=== PATIENT | male | born 1950 | race Caucasian/White ===

== ENCOUNTER 2019-06-07 20:48 | Emergency (ER) | payer MEDICARE, SELFPAY ==
[2019-06-07] VITALS (13 sets, daily range): BP systolic 138–167; BP diastolic 76–96; PULSE 78–88; RESP 17–18; TEMP 36.7; O2SAT 95–97; BMI 31.0
--- NOTE | 2019-06-07 21:15 | XRR_ITS ---
PROCEDURE INFORMATION: Exam: XR Chest, 1 View Exam date and time: 06/07/2019 9:16 PM Age: 69 years old Clinical indication: Fever; Prior surgery; Surgery type: Stent TECHNIQUE: Imaging protocol: XR of the chest Views: 1 view. COMPARISON: CR Chest 1 [place] [id number] 05/30/2018 4:30 PM FINDINGS: Lungs: Unremarkable. No consolidation. Unchanged calcified granulomata. Unchanged scarring right lung base. Pleural space: Unremarkable. No pleural effusion. No pneumothorax. Heart/Mediastinum: Unchanged cardiomegaly. Bones/joints: No acute abnormality. XR/XR chest 1V portable [id number] IMPRESSION: No acute findings.
--- NOTE | 2019-06-07 22:57 | ED_ITS ---
HPI - Fever General: Chief Complaint: Fever Stated Complaint: fever Time Seen by Provider: 06/07/19 22:49 Source: patient Mode of arrival: ambulatory Limitations: no limitations History of Present Illness: HPI Narrative: Patient comes in today with a one- week history of fever. Patient was seen by urgent care on Monday and diagnosed with a viral syndrome. Patient was seen then again on Monday and started on some Augmentin for his fever that was persisting. Patient comes in today for continued fever and cough. Patient appears mildly unwell. Patient appears in no pain. Review of Systems General: Reports: 10 or more systems reviewed and unremarkable except in HPI and below Const: Reports: fever Resp: Reports: non-productive cough PFSH ED PFSH: Statuses (acute, chronic, etc) shown below reflect problem list status as previously entered and may not be historically accurate Social History (Updated 06/03/19 @ 18:32 by Jess Gutierrez LPN) Smoking and tobacco status: former smoker Physical Exam Const: COMMON NORMALS: no apparent distress and oriented x3 GENERAL A PPEARANCE: cooperative HENMT: COMMON NORMALS: normocephalic, external ears normal, EAC's normal, TM's normal bilaterally and external nose normal HEAD & SCALP: normal to inspection and normocephalic FACE & SINUS: normal facial exam NOSE: external nose normal GENERAL EAR: hearing not grossly impaired EXTERNAL EAR: Yes external ears normal EXTERNAL AUDITORY CANAL: EAC's normal TYMPANIC MEMBRANE: TM's normal bilaterally MOUTH: oral and palatal mucosa normal THROAT: posterior oropharynx normal Eye: COMMON NORMALS: PERRL and EOMs intact bilaterally PUPIL: Yes PERRL Neck/C-Spine: COMMON NORMALS: full ROM and no lymphadenopathy Lymph: LYMPHATIC: no lymphedema noted Chest: COMMONS NORMALS: inspection of chest normal and palpation of chest normal Resp: COMMON NORMALS: normal respiratory effort AUSCULTATION: wheezes (mild) expiratory wheezes Cardio: COMMON NORMALS: regular rate and regular rhythm RATE: regular rate RHYTHM: regular rhythm GI: COMMON NORMALS: normal to inspection, nondistended, normoactive bowel sounds and non-tender : COMMON NORMALS: Yes no CVA tenderness BLADDER/KIDNEY EXAM: Yes no CVA tenderness Back/Pelvis: COMMON NORMALS: no CVA tenderness and thoracic and lumbar spine normal to inspection Extremity: COMMON NORMALS: normal to inspection GENERAL: No edema Neuro: COMMON NORMALS: oriented x3, moves all extremities and no focal motor deficits Psych: COMMON NORMALS: mental status grossly normal and cooperative Skin: COMMON NORMALS: no rashes or lesions noted GENERAL SKIN EXAM: no rashes or lesions noted Course Vital Signs: Vital signs: Vital Signs Temperature 98.0 F 06/07/19 23:30 Pulse Rate 78 06/07/19 23:30 Respiratory Rate 18 06/07/19 23:30 Blood Pressure 166/96 06/07/19 23:50 Pulse Oximetry 96 06/07/19 23:30 MDM - Fever MDM Narrative: Medical decision making narrative: Patient comes in today for complaints of persisting fever and cough for 1 week. Exam notes some mild expiratory wheeze. Skin is warm and dry color is pink. Patient has a no fever at this time. Differential diagnosis includes pneumonia, influenza, upper respiratory infection. Chest x-ray noted no pneumonia. Reviewed exam with patient recommended continued treatment with Augmentin and a dose of d examethasone to help with wheezing. Discussed the use of switching the antibiotic to doxycycline may be necessary to cover some of the pathogens that would cause bronchitis. We went ahead and wrote for doxycycline and discussed with patient that if he had worsening symptoms or no improvement in 2 days he was going to switch the antibiotic. Patient was very agreeable to this plan and looked well so he was released to home with instructions. Discharge Plan Discharge Patient Disposition: Home, Self-Care Clinical Impression: Acute bronchitis Qualifiers: Bronchitis organism: unspecified organism Qualified Code(s): J20.9 - Acute bro nchitis, unspecified Condition: Stable Prescriptions: New doxycycline hyclate 100 mg tablet 100 mg PO BID 10 Days Qty: 20 RF: 0 No Action clopidogrel [Plavix] 75 mg tablet 75 mg PO QDAY RF: 0 pravastatin [Pravachol] 40 mg tablet 40 mg PO QDAY RF: 0 montelukast [Singulair] 10 mg tablet 10 mg PO QDAY RF: 0 pantoprazole [Protonix] 20 mg tablet,delayed release (DR/EC) 20 mg PO QDAY RF: 0 tamsulosin [Flomax] 0.4 mg capsule 0.4 mg PO QDAY RF: 0 alprazolam [Xanax] 0.5 mg tablet 0.5 mg PO TID RF: 0 Januvia 25 mg tablet 25 mg PO QDAY RF: 0 amoxicillin-pot clavulanate [Augmentin] 875-125 mg tablet 1 tab PO BID 10 Days Qty: 20 RF: 0 Discharge Orders: Discharge Order (Routine); Ordered 06/07/19 Ordered By: Rakesh Bosch Referrals: Ally Morales ARNP [Primary Care Provider] - Discharge Diet: Usual diet Discharge Activity: Resume usual activity Patient Instructions: Acute Bronchitis (ED) Activity Restrictions/Additional Instructions: Fluids and rest Medications as directed Healthy diet Follow-up with primary care in one week Discharge Date/Time: 06/07/19 23:35 Coding Level of Care Code 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
[2019-06-07] MEDS: dexamethasone 10 mg/mL INJ IM (23:19)
== END 2019-06-07 23:35 | disposition home or self-care (01) ==
PROVIDERS: Emergency Provider Nurse Practitioner Family; Family Provider Nurse Practitioner Family; PCP Nurse Practitioner Family
DX: J20.9 Acute bronchitis, unspecified (principal); Z79.02 Long term (current) use of antithrombotics/antiplatelets; Z87.891 Personal history of nicotine dependence
CPT/HCPCS: 71045; 96372; 99281; 99284; A9270; J1100

== ENCOUNTER 2019-06-14 13:49 | Emergency (ER) | payer MEDICARE, SELFPAY ==
[2019-06-14 14:00] VITALS: BP 165/91; PULSE 98; RESP 18; TEMP 36.5; O2SAT 97; BMI 30.9
--- NOTE | 2019-06-14 14:21 | ED_ITS ---
HPI - Fever General: Chief Complaint: Fever Stated Complaint: fever Time Seen by Provider: 06/14/19 14:21 Source: patient Mode of arrival: ambulatory Limitations: no limitations History of Present Illness: HPI Narrative: Patient has had a cough or congestion for the last 2 weeks. Patient was first seen on 03 June and started on Augmentin. After 3 to 4 days patient was seen then in the ER and diagnosed with acute bronchitis and antibiotic was changed from Augmentin to doxycycline. Patient reports he not gotten worse but just do not quite feel right in his chest still and is concerned something else may be going on. Patient appears well. Patient appears in no pain. Review of Systems General: Reports: 10 or more systems reviewed and unremarkable except in HPI and below Resp: Reports: productive cough PFSH ED PFSH: Statuses (acute, chronic, etc) shown below reflect problem list status as previously entered and may not be historically accurate Social History (Updated 06/03/19 @ 18:32 by Jess Gutierrez LPN) Smoking and tobacco status: former smoker Physical Exam Const: COMMON NORMALS: no apparent distress and oriented x3 GENERAL APPEARANCE: cooperative HENMT: COMMON NORMALS: normocephalic, external ears normal, EAC's normal, TM's normal bilaterally and external nose normal HEAD & SCALP: normal to inspection and normocephalic FACE & SINUS: normal facial exam NOSE: external nose normal GENERAL EAR: hearing not grossly impaired EXTERNAL EAR: Yes external ears normal EXTERNAL AUDITORY CANAL: EAC's normal TYMPANIC MEMBRANE: TM's normal bilaterally MOUTH: oral and palatal mucosa normal THROAT: posterior oropharynx normal Eye: COMMON NORMALS: PERRL and EOMs intact bilaterally PUPIL: Yes PERRL Neck/C-Spine: COMMON NORMALS: full ROM and no lymphadenopathy Lymph: LYMPHATIC: no lymphedema noted Chest: COMMONS NORMALS: inspection of chest normal and palpation of chest normal Resp: COMMON NORMALS: normal respiratory effort AUSCULTATION: rhonchi Cardio: COMMON NORMALS: regular rate and regular rhythm RATE: regular rate RHYTHM: regular rhythm GI: COMMON NORMALS: normal to inspection, nondistended, normoactive bowel sounds and non-tender : COMMON NORMALS: Yes no CVA tenderness BLADDER/KIDNEY EXAM: Yes no CVA tenderness Back/Pelvis: COMMON NORMALS: no CVA tenderness and thoracic and lumbar spine normal to inspection Extremity: COMMON NORMALS: normal to inspection GENERAL: No edema Neuro: COMMON NORMALS: oriented x3, moves all extremities and no focal motor deficits Psych: COMMON NORMALS: mental status grossly normal and cooperative Skin: COMMON NORMALS: no rashes or lesions noted GENERAL SKIN EXAM: no rashes or lesions noted Course Vital Signs: Vital signs: Vital Signs Temperature 97.7 F 06/14/19 14:00 Pulse Rate 68 06/14/19 15:50 Respiratory Rate 18 06/14/19 15:50 Blood Pressure 137/84 06/14/19 15:50 Pulse Oximetry 97 06/14/19 15:50 MDM - Fever MDM Narrative: Medical decision making narrative: Patient comes in for persistent cough with congestion. Exam notes some mild rhonchi in the lung fitch. Vital signs were stable. Patient was afebrile. Differential diagnosis includes pneumonia, bronchitis, viral syndrome. Chest x-ray noted a patchy infiltrate developing in the right lung. Patient has been treated with Augmentin and doxycycline we will then proceed to go with Levaquin for a more oral treatment of the infection. Patient was dosed with 10 mg of dexamethasone and 750 mg of levofloxacin. Patient tolerated medication well and reported understanding of care plan with need for follow-up and return for worsening signs and symptoms. Lab Data: Labs: Lab Results 06/14/19 Range/Units 14:14 Influenza Type A A g Negative (Negative) POC Influenza B Ag Negative (Negative) Discharge Plan Discharge Patient Disposition: Home, Self-Care Clinical Impression: Community acquired pneumonia Qualifiers: Laterality: right Lung location: middle lobe of lung Qualified Code(s): J18.9 - Pneumonia, unspecified organism Condition: Stable Prescriptions: New levofloxacin 750 mg tablet 750 mg PO DAILY 6 Days Qty: 6 RF: 0 Discontinued amoxicillin-pot clavulanate [Augmentin] 875-125 mg tablet 1 tab PO BID 10 Days Qty: 20 RF: 0 doxycycline hyclate 100 mg tablet 100 mg PO BID 10 Days Qty: 20 RF: 0 No Action clopidogrel [Plavix] 75 mg tablet 75 mg PO QDAY RF: 0 pravastatin [Pravachol] 40 mg tablet 40 mg PO QDAY RF: 0 montelukast [Singulair] 10 mg tablet 10 mg PO QDAY RF: 0 pantoprazole [Protonix] 20 mg tablet,delayed release (DR/EC) 20 mg PO QDAY RF: 0 tamsulosin [Flomax] 0.4 mg capsule 0.4 mg PO QDAY RF: 0 alprazolam [Xanax] 0.5 mg tablet 0.5 mg PO TID RF: 0 Januvia 25 mg tablet 25 mg PO QDAY RF: 0 Discharge Orders: Discharge Order (Routine); Ordered 06/14/19 Ordered By: Rakesh Bosch Referrals: Ally Morales ARNP [Primary Care Provider] - Discharge Diet: Usual diet Discharge Activity: Increase activity as tolerated Patient Instructions: Community-acquired Pneumonia (ED) Activity Restrictions/Additional Instructions: Drink plenty of water Antibiotics as directed Stop doxycycline and Augmentin Take levofloxacin daily as directed Avoid heavy lifting or straining with while taking antibiotic and two weeks after Follow-up with primary care in one week for recheck Discharge Date/Time: 06/14/19 15:51 Coding Level of Care Code ED Commissions Specialist for Dori Rascon Exam Problem Focused
--- NOTE | 2019-06-14 14:24 | XR_ITS ---
WS: [id number] Portable AP upright chest, 06/14/2019 Clinical Data: cough fever Comparison: Portable chest, 06/07/2019 Findings: No nodules, masses or effusions are seen. The heart is normal. The pulmonary vascularity is not increased. There is increase in a patchy opacity at the right lung base and this could represent atelectasis or early pneumonia. Recommend repeat PA and lateral chest x-ray in one to 2 days. No pne umothorax is seen. XR/XR chest 1V portable [id number] Impression: 1. Increase in patchy opacity over right diaphragm and recommend repeat chest x-ray in one to 2 days to evaluate for possible pneumonia. 2. Left lung is normal.
[2019-06-14] MEDS: levoFLOXacin 750 mg Tablet PO (15:08)
[2019-06-14] MEDS: dexamethasone 4 mg Tablet 10 MG PO (15:08)
[2019-06-14 15:37] LABS: Influenza A by IFA Negative (Negative); Influenza B by IFA Negative (Negative)
[2019-06-14 15:50] VITALS: BP 137/84; PULSE 68; RESP 18; O2SAT 97
== END 2019-06-14 15:51 | disposition home or self-care (01) ==
PROVIDERS: Emergency Provider Nurse Practitioner Family; Family Provider Nurse Practitioner Family; PCP Nurse Practitioner Family
DX: J18.8 Other pneumonia, unspecified organism (principal); Z79.02 Long term (current) use of antithrombotics/antiplatelets; Z87.891 Personal history of nicotine dependence
CPT/HCPCS: 71045; 87804; 99281; 99283; J8540

== ENCOUNTER 2020-11-05 09:21 | Outpatient (CLI) | payer MEDICARE, SELFPAY ==
[2020-11-05 09:54] VITALS: BMI 33.0
--- NOTE | 2020-11-05 09:55 | NMCV_ITS ---
NM armin perf SPECT r/s* [id number] Aramis ca Age: 70 Gender: M : 1950 Exam Date: 11/05/2020 10:32 Ordering Phys: Josh Gottlieb M.D ([email or web address]) Technologist: RAVEN Grossman Exam Location: [facility] Indications: ESSENTIAL PRIMARY HYPERTENSION STRESS TEST Please see separate stress test report in [facility] for full findings IMAGE PROTOCOL Rest/Stress 1 Exercise Day Radiopharmaceutical Dose (mCi) Administration Site Administered by Rest: Tc-99m 10.4 IV RAVEN Grossman Sestamibi Stress:Tc-99m 32.1 IV RAVEN Grossman Sestamibi Rest: 05-Nov-2020 60 Discovery 630 Stress: 05-Nov-2020 30 Discovery 630 Radiopharmaceutical was injected at 88 % maximum heart rate. Images obtained in supine and prone position. SPECT RESULTS Technical Quality: Excellent Raw Data Analysis: Normal Image Corrections: No attenuation or motion correction applied Summed Stress Score: 6 Summed Rest Score: 0 Summed Difference Score: 6 PERFUSION FINDINGS There is a moderate area of reversible perfusion defect noted in the anterolateral, mid lateral and lateral ng. This is consistent with ischemia in these territories FUNCTIONAL RESULTS (calculated via Gated SPECT) Stress Image LV EF (%): 60 Stress EDV (mL):98 TID: 1.11 Stress ESV (mL):39 FUNCTIONAL FINDINGS: There is normal left ventricular systolic function. IMPRESSIONS 1. Abnormal myocardial perfusion imaging with ischemia noted in the anterolateral, mid lateral and lateral ng. 2. LV systolic function is normal Josh Gottlieb MD (Electronically Signed) Final Date: 07 November 2020 19:57 S
--- NOTE | 2020-11-05 09:55 | ECG_ITS ---
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 Interpretive Statements NAME OF STUDY: EXERCISE SESTAMIBI STRESS TEST INDICATION: [HTN; ASHD; BILATERAL CAROTID STENOSIS] DOT PHYSICAL CLEARANCE PROCEDURE DETAIL: The patient was exercised by Garcia protocol. Baseline heart rate was 68 beats per minute. Baseline blood pressure was 152/83 millimeters of mercury. Target heart rate was 128 beats per minute. Maximum heart rate achieved was 141, which was 110% of the target heart rate. Maximum blood pressure was 194/140 millimeters of mercury. Total exercise time was 4 minutes and 14 seconds. Maximum METs achieved was 7, maximum VO2 was 24.5. The reason for ending the test was achieving target heart rates. The patient complained of shortness of breath during the stress test, which then resolved at the end of the test. ELECTROCARDIOGRAM: BASELINE: Showed sinus rhythm, normal axis, no significant ST-T changes at the baseline noted, frequent PVCs. [] EXERCISE: At the peak exercise level, significant artifact noted. Ischemic changes can not be accurately assessed. RECOVERY: During the recovery period, heart rate dropped appropriately. PVCs were noted CONCLUSION: 1. Exercise capacity fair. 2. Heart rate response was appropriate. 3. Blood pressure response was hypertensive 4. Symptoms not suggestive of ischemia. 5. Electrocardiogram portion of the stress test was inconclusive for ischemia because of EKG artifact Electronically Signed On 11-13-2020 14:09:22 CDT by Josh Gottlieb M.D. [id number]
[2020-11-05 13:51] VITALS: BP 165/94; PULSE 93
== END 2020-11-05 09:22 | disposition home or self-care (01) ==
LOC: CDL 09:22
PROVIDERS: PCP Nurse Practitioner Family; Visit Provider Internal Medicine
DX: I10 Essential (primary) hypertension (principal); I25.10 Atherosclerotic heart disease of native coronary artery without angina pectoris; I65.23 Occlusion and stenosis of bilateral carotid arteries
CPT/HCPCS: 78452; 93017; A9500

== ENCOUNTER 2021-04-27 20:26 | Emergency (ER) | payer MEDICARE, OTHER, SELFPAY ==
[2021-04-27 20:32] VITALS: BP 171/71; PULSE 64; RESP 18; TEMP 36.8; BMI 31.1
--- NOTE | 2021-04-27 20:32 | ECG_ITS ---
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 Measurements Intervals [place] Rate: 64 P: 65 ID: 160 QRS: 14 QRSD: 110 T: 66 QT: 373 QTc: 387 Interpretive Statements SINUS RHYTHM Compared to ECG 05/30/2018 19:21:55 Sinus bradycardia no longer present Electronically Signed On 04-27-2021 21:58:26 COMPLIANCE MGR by Beth Martinez M.D. [id number] f
--- NOTE | 2021-04-27 20:32 | XRR_ITS ---
PROCEDURE INFORMATION: Exam: XR Chest Exam date and time: 04/27/2021 8:32 PM Age: 71 years old Clinical indication: Chest wall pain; Additional info: Cp TECHNIQUE: Imaging protocol: XR of the chest. Views: 1 view. COMPARISON: CR XR chest 1V portable [id number] 06/14/2019 2:32 PM FINDINGS: Lungs: No consolidation. Pleural spaces: No pleural effusion. No pneumothorax. Heart/Mediastinum: Top-normal heart size accentuated by AP technique. Bones/joints: Visualized osseous structures are intact. XR/XR chest 1V portable [id number] IMPRESSION: No acute findings.
--- NOTE | 2021-04-27 20:48 | W.ED.WEAKNES ---
HPI - Weakness General: Chief complaint: Weakness Stated complaint: weakness Time Seen by Provider: 04/27/21 20:29 Source: patient and EMS Mode of arrival: EMS Limitations: no limitations History of Present Illness: HPI Narrative: 8-year-old male that states that roughly an hour ago he started having some tingling in his bilateral upper extremities states that it concerned him as he has a history of a heart attack in the past states it lasted roughly 10 to 15 minutes since completely resolved states he had some slight fluctuation in his blood pressures but is unsure exactly what it was. Denies any stroke symptoms no slurred speech no headache no chest pain no vomiting diarrhea patient's symptoms of completely resolved this time. He states she is has been under some stress lately his recently passed that he has been to for 53 years. Associated symptoms: Denies chest pain, chills, dysuria, easy bruising, fever(s), nausea or vomiting Review of Systems Const: Denies: fever(s), chills, body aches or change in appetite Eyes: Denies: blurry vision or eye discomfort ENMT: Denies: throat pain or dental pain Card: Denies: chest pain Resp: Denies: dyspnea GI: Denies: abdominal pain, nausea, vomiting or diarrhea : Denies: dysuria Musc: Denies: neck pain or back pain Skin/Breast: Denies: rash Neuro: Reports: numbness in extremities Psych: Denies: depression [place]/Lymph: Denies: easy bruising All/Imm: Denies: urticaria PFSH ED PFSH: Medical History ASHD (arteriosclerotic heart disease) Carotid stenosis, bilateral Dyslipidemia GERD (gastroesophageal reflux disease) HTN (hypertension) Myocardial infarction Surgical History S/P cataract extraction S/P PTCA (percutaneous transluminal coronary angioplasty) S/P sinus surgery Social History Smoking and tobacco status: current every day smoker (chew) smokeless tobacco Alcohol intake: never History of recent travel: No Physical Exam Const: COMMON NORMALS: no acute distress, patient oriented x3 and healthy appearing HENMT: COMMON NORMALS: normocephalic and atraumatic HEAD & SCALP: normocephalic and atraumatic Eye: COMMON NORMALS: Equal, round and reactive pupils present and EOMs intact bilaterally PUPIL: Yes Equal, round and reactive pupils present Neck/C-Spine: COMMON NORMALS: full ROM and supple Chest: COMMONS NORMALS: normal inspection of the chest and normal palpation of entire chest wall Resp: COMMON NORMALS: normal respiratory effort, No retractions, No use of accessory muscles and clear to auscultation bilaterally AUSCULTATION: clear to auscultation bilaterally Cardio: COMMON NORMALS: regular rate, regular rhythm and No murmurs present (Cardio) RATE: regular rate RHYTHM: regular rhythm GI: COMMON NORMALS: Normal to inspection, nondistended, normoactive bowel sounds present, Soft to palpation, non-tender and no masses PALPATION: Yes Soft to palpation Extremity: COMMON NORMALS: normal to inspection and full ROM Neuro: COMMON NORMALS: patient oriented x3, moves all extremities and no focal motor deficits CRANIAL NERVES: Yes CN normal except as noted SPEECH: speech normal GAIT: Yes Normal gait present SENSORY EXAM: Yes extremities MOTOR EXAM: 5/5 motor strength present throughout Psych: COMMON NORMALS: mental status grossly normal, Normal thought process present and cooperative THOUGHT PROCESS: Normal thought process present Skin: COMMON NORMALS: no rashes or lesions noted and no wounds GENERAL SKIN EXAM: no rashes or lesions noted Course Vital Signs: Vital signs: Vital Signs Temperature 98.3 F 04/27/21 20:32 Pulse Rate 61 04/27/21 22:02 Respiratory Rate 18 04/27/21 22:02 Blood Pressure 150/77 04/27/21 22:02 Pulse Oximetry 98 04/27/21 22:02 MDM - Weakness MDM Narrative: Medical decision making narrative: Patient presents here with episode of paresthesias since resolved he has been under a lot of stress lately his cardiac enzymes CT head were normal no signs of cardiac cause no signs of acute stroke patient is stable for discharge and is to follow-up with PCP and return if worsening he understands agrees to plan. Lab Data: Labs: Lab Results 04/27/21 04/27/21 04/27/21 20:45 20:45 20:45 WBC 6.2 10^3/uL 10^3/ uL (4.0-10.0) RBC 4.99 10^6/uL 10^6 /uL (4.1-5.3) Hgb 14.4 g/dL g/dL (11.7-16.6) Hct 44.1 % % (42.0-52.0) MCV 88.4 fl fl (80-94) MCH 28.9 pg pg (28.0-34.0) MCHC 32.7 g/dL g/dL (30.0-36.0) RDW 14.4 % % (12.1-15.1) Plt Count 210 10^3/cmm 10^3 /cmm (130-400) MPV 9.4 fL fL (7.4-10.4) Neut % (Auto) 50.8 % % Lymph % (Auto) 38.6 % % [place] % (Auto) 8.9 % % Eos % (Auto) 1.0 % % Baso % (Auto) 0.5 % % Neut # (Auto) 3.13 10^3/uL 10^3 /uL (1.8-7.7) Lymph # (Auto) 2.4 10^3/uL 10^3/ uL (0.8-4.8) [place] # (Auto) 0.6 10^3/uL 10^3/ uL (0.2-0.9) Eos # (Auto) 0.1 10^3/uL 10^3/ uL (0.0-0.8) Baso # (Auto) 0.0 10^3/uL 10^3/ uL (0.0-0.1) Nucleated RBC % (a uto) 0 % % Nucleated RBCs # 0.0 /100WBC /100W BC Sodium 142 mmol/L mmol/L (136-145) Potassium 3.6 mmol/L mmol/L (3.5-5.1) Chloride 105 mmol/L mmol/L (98-107) Carbon Dioxide 24 mmol/L mmol/L (22-29) Anion Gap 16.6 (5-19) BUN 10 mg/dL mg/dL (8-23) Creatinine 0.8 mg/dL mg/dL (0.7-1.2) GFR Calculation 95.6 mL/min mL/mi n (90-130) Glucose 100 mg/dL mg/dL (65-115) Calculated Osmolal ity 293 mOsm/kg mOsm/ kg (285-295) Calcium 8.6 mg/dL mg/dL (8.5-10.5) Total Bilirubin 0.4 mg/dL mg/dL (0.15-1.2) AST 15 U/L U/L (0-40) ALT 16 U/L U/L (0-41) Alkaline Phosphata se 73 IU/L IU/L (40-130) Troponin T Baselin e 6 ng/L ng/L (0-15) Total Protein 6.6 g/dL g/dL (6.6-8.7) Albumin 4.1 g/dL g/dL (3.5-5.2) Globulin 2.5 g/dL g/dL (1.3-4.6) Imaging Data^: CXR: Attestation: I personally reviewed and interpreted this imaging study as follows: My impression: no acute abnormality CT Head: Attestation: I personally reviewed and interpreted this imaging study as follows: Radiologist's impression: [address] [address] [address] Scan Report Signed Patient: Aramis Willams Unit #: [id number] : 1950 Age/Sex: 71 / M ADM Date: 04/27/21 Loc: ER Room/Bed: Attending Dr: Ordering Provider/Ordering MD: Vickey Rossi MD Date of Service: 04/27/21 Procedure(s): CT head wo con* [id number] Accession Number(s): [id number] Report Number: [id number] PROCEDURE INFORMATION: Exam: CT Head Without Contrast Exam date and time: 04/27/2021 9:31 PM Age: 71 years old Clinical indication: Other: Generalized weakness; Prior surgery; Surgery type: Carotid TECHNIQUE: Imaging protocol: Computed tomography of the head without contrast. Radiation optimization: All CT scans at this facility use at least one of these dose optimization techniques: automated exposure control; mA and/or kV adjustment per patient size (includes targeted exams where dose is matched to clinical indication); or iterative reconstruction. COMPARISON: CR Orbits Complete [id number] 03/23/2016 9:36 AM RADIATION DOSE METRICS: Total DLP (mGy-cm): 824.8 FINDINGS: Brain: No hemorrhage. Unremarkable white matter. No mass effect. The pituitary gland appears prominent for patient's stated age measuring up to 8 mm in height. Cerebral ventricles: No ventriculomegaly. Paranasal sinuses: Visualized sinuses are unremarkable. No fluid levels. Mastoid air cells: Visualized mastoid air cells are well aerated. Bones/joints: Unremarkable. No acute fracture. Soft tissues: Unremarkable. CT/CT head wo con* [id number] IMPRESSION: 1. No acute intracranial abnormality. 2. Prominent appearance of the pituitary gland for patient's stated age. This could be further evaluated with pituitary protocol MRI. Dictated By: Damion Hall DO Signed By: Damion Hall DO Signed Date/Time: 04/27/212200 DD/ 30 EKG Data^: EKG 1: Attestation: I personally reviewed and interpreted this EKG as follows: EKG interpretation date: 04/27/21 EKG interpretation time: 20:32 Interpretation: nsr hr [address] or t wave abnormalitities qrs 110 qtc 383 Discharge Plan Discharge Patient Disposition: Home Clinical Impression: Paresthesia Condition: Stable Prescriptions: No Action montelukast [Singulair] 10 mg tablet 10 mg PO DAILY RF: 0 pantoprazole [Protonix] 20 mg tablet,delayed release (DR/EC) 20 mg PO DAILY RF: 0 tamsulosin [Flomax] 0.4 mg capsule 0.4 mg PO BID RF: 0 alprazolam [Xanax] 0.5 mg tablet 0.5 mg PO TID RF: 0 atorvastatin 40 mg tablet 40 mg PO DAILY RF: 0 sertraline 25 mg tablet 25 mg PO DAILY RF: 0 Plavix 75 mg tablet 75 mg PO DAILY RF: 0 Discharge Orders: Discharge ED (Routine); Ordered 04/27/21 Ordered By: Vickey Rossi Discharge Diet: Advance as tolerated Discharge Activity: Resume usual activity Patient Instructions: Paresthesia (ED) Coding Level of Care Code 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
[2021-04-27 21:10] LABS: Troponin(5th) Baseline 6 ng/L (0-15)
[2021-04-27 21:16] LABS: Basophils % 0.5 %; Eosinophils # 0.1 10^3/uL (0.0-0.8); Hematocrit 44.1 % (42.0-52.0); Hemoglobin 14.4 g/dL (11.7-16.6); Lymphocytes # 2.4 10^3/uL (0.8-4.8); Lymphocytes % 38.6 %; Mean Corpuscular HGB Conc 32.7 g/dL (30.0-36.0); Mean Corpuscular Hemoglobin 28.9 pg (28.0-34.0); Mean Corpuscular Volume 88.4 fl (80-94); Mean Platelet Volume 9.4 fL (7.4-10.4); Monocytes # 0.6 10^3/uL (0.2-0.9); Monocytes % 8.9 %; Neutrophils # 3.13 10^3/uL (1.8-7.7); Neutrophils % 50.8 %; Nucleated Red Blood Cells % 0 %; Platelet Count 210 10^3/cmm (130-400); Red Blood Count 4.99 10^6/uL (4.1-5.3); Red Cell Distribution Width 14.4 % (12.1-15.1); White Blood Count 6.2 10^3/uL (4.0-10.0)
[2021-04-27 21:30] LABS: Alanine Aminotransferase 16 U/L (0-41); Albumin Level 4.1 g/dL (3.5-5.2); Alkaline Phosphatase 73 IU/L (40-130); Anion Gap 16.6 (5-19); Aspartate Amino Transferase 15 U/L (0-40); Blood Urea Nitrogen 10 mg/dL (8-23); Calcium 8.6 mg/dL (8.5-10.5); Carbon Dioxide 24 mmol/L (22-29); Chloride 105 mmol/L (98-107); Globulin 2.5 g/dL (1.3-4.6); Glomerular Filtration Rate 95.6 mL/min (90-130); Glucose 100 mg/dL (65-115); Osmolality Calculated 293 mOsm/kg (285-295); Potassium 3.6 mmol/L (3.5-5.1); Sodium 142 mmol/L (136-145); Total Bilirubin 0.4 mg/dL (0.15-1.2); Total Protein 6.6 g/dL (6.6-8.7)
--- NOTE | 2021-04-27 21:31 | CTR_ITS ---
PROCEDURE INFORMATION: Exam: CT Head Without Contrast Exam date and time: 04/27/2021 9:31 PM Age: 71 years old Clinical indication: Other: Generalized weakness; Prior surgery; Surgery type: Carotid TECHNIQUE: Imaging protocol: Computed tomography of the head without contrast. Radiation optimization: All CT scans at this facility use at least one of these dose optimization techniques: automated exposure control; mA and/or kV adjustment per patient size (includes targeted exams where dose is matched to clinical indication); or iterative reconstruction. COMPARISON: CR Orbits Complete [id number] 03/23/2016 9:36 AM RADIATION DOSE METRICS: Total DLP (mGy-cm): 824.8 FINDINGS: Brain: No hemorrhage. Unremarkable white matter. No mass effect. The pituitary gland appears prominent for patient's stated age measuring up to 8 mm in height. Cerebral ventricles: No ventriculomegaly. Paranasal sinuses: Visualized sinuses are unremarkable. No fluid levels. Mastoid air cells: Visualized mastoid air cells are well aerated. Bones/joints: Unremarkable. No acute fracture. Soft tissues: Unremarkable. CT/CT head wo con* [id number] IMPRESSION: 1. No acute intracranial abnormality. 2. Prominent appearance of the pituitary gland for patient's stated age. This could be further evaluated with pituitary protocol MRI.
[2021-04-27 22:02] VITALS: BP 150/77; PULSE 61; RESP 18; O2SAT 98
[2021-04-27 23:05] VITALS: BP 139/83; PULSE 61; RESP 18; TEMP 36.7; O2SAT 98
== END 2021-04-27 23:07 | disposition home or self-care (01) ==
PROVIDERS: Emergency Provider Emergency Medicine
DX: R20.2 Paresthesia of skin (principal); I10 Essential (primary) hypertension; K21.9 Gastro-esophageal reflux disease without esophagitis; I25.10 Atherosclerotic heart disease of native coronary artery without angina pectoris; I65.23 Occlusion and stenosis of bilateral carotid arteries; I25.2 Old myocardial infarction; F17.220 Nicotine dependence, chewing tobacco, uncomplicated
CPT/HCPCS: 70450; 71045; 80053; 84484; 85025; 93005; 99283

== ENCOUNTER 2021-11-20 21:09 | Emergency (ER) | payer MEDICARE, MEDICAID, SELFPAY ==
[2021-11-20 21:51] VITALS: BP 164/64; PULSE 93; RESP 18; TEMP 38.1; O2SAT 97; BMI 31.9
--- NOTE | 2021-11-21 00:59 | XRR_ITS ---
PROCEDURE INFORMATION: Exam: XR Chest Exam date and time: 11/21/2021 1:09 AM Age: 71 years old Clinical indication: Cough and fever; Additional info: Cough, fever TECHNIQUE: Imaging protocol: Radiologic exam of the chest. Views: 1 view. COMPARISON: CR XR chest 1V portable [id number] 04/27/2021 8:45 PM FINDINGS: Lungs: There are normal lung volumes without confluent interstitial or airspace opacities. Age-related interstitial prominence is seen in the lungs. Pleural spaces: There are no pleural effusions or pneumothorax. Heart/Mediastinum: The heart size is unchanged - at the upper limit of normal. There is a mildly tortuous thoracic aorta. The trachea is in the midline. Bones/joints: No acute abnormalities. Mild shoulder degenerative changes are seen. Small degenerative osteophytes are seen throughout the thoracic spine. XR/XR chest 1V portable [id number] IMPRESSION: No confluent infiltrates in the lungs.
--- NOTE | 2021-11-21 01:21 | W.ED.GENADLT ---
HPI - General Adult General: Chief complaint: General Medical Stated complaint: weakness; throat discomfort; fever Time Seen by Provider: 11/21/21 00:59 History of Present Illness: Patient is a 71-year-old male comes to the ED with fever and cough. Symptoms started approximately 2 days ago. Patient says he went up to his girlfriend's house to help her move out. He was moving stuff in and out of a trailer that was very gust[place] and dirty and he says he was breathing that in and that is when his cough and nasal congestion and drainage started. His girlfriend had same symptoms and she did a home COVID test and it was negative. His cough is mostly dry but occasionally has some clear sputum that he coughs up. Denies any shortness of breath or chest pain. Patient says he feels a little fatigued but he just drove back in town after helping his girlfriend move for the past couple days and thinks he is just tired from the travel. Denies any nausea/vomiting, body aches, bladder or bowel symptoms. Associated symptoms: Deny chest pain, dyspnea, headache(s), nausea, rash, palpitations or vomiting Review of Systems Const: Denies: fever(s), chills or fatigue Eyes: Denies: change in vision or eye discomfort ENMT: Reports: throat pain, nasal discharge and nasal congestion; Denies: odynophagia Card: Denies: chest pain, palpitations, edema, swelling of feet/ankles, dyspnea on exertion or orthopnea Resp: Reports: non-productive cough; Denies: dyspnea or productive cough GI: Denies: abdominal pain, nausea, vomiting, diarrhea, constipation or hematochezia : Denies: flank pain, difficulty urinating, dysuria or hematuria Musc: Denies: neck pain, back pain or extremity swelling Skin/Breast: Denies: rash or new lesions Neuro: Denies: headache(s), numbness in extremities or weakness in extremities PFS ED PFSH: Medical History ASHD (arteriosclerotic heart disease) Carotid stenosis, bilateral Dyslipidemia GERD (gastroesophageal reflux disease) HTN (hypertension) Myocardial infarction Surgical History S/P cataract extraction S/P PTCA (percutaneous transluminal coronary angioplasty) S/P sinus surgery Social History Smoking and tobacco status: current every day smoker (chew) smokeless tobacco Alcohol intake: never History of recent travel: No Physical Exam Const: COMMON NORMALS: no acute distress, patient oriented x3 and alert GENERAL APPEARANCE: cooperative and comfortable HENMT: COMMON NORMALS: normocephalic HEAD & SCALP: normocephalic MOUTH: Normal oral and palatal mucosa present THROAT: posterior oropharynx normal and uvula midline Eye: COMMON NORMALS: Equal, round and reactive pupils present, EOMs intact bilaterally and conjunctivae normal CONJUNCTIVA: Yes conjunctivae normal PUPIL: Yes Equal, round and reactive pupils present Neck/C-Spine: COMMON NORMALS: supple GENERAL: Yes normal visual inspection Resp: COMMON NORMALS: normal respiratory effort, No retractions, No use of accessory muscles and clear to auscultation bilaterally EFFORT & INSPECTION: Yes Actively coughing dry AUSCULTATION: clear to auscultation bilaterally Cardio: COMMON NORMALS: regular rate, regular rhythm, S1 normal heart sound present, S2 normal heart sound present, No gallops present (Cardio), No clicks present (Cardio), No murmurs present (Cardio) and Peripheral pulses 2+ throughout RATE: regular rate RHYTHM: regular rhythm HEART SOUNDS: S1 normal heart sound present and S2 normal heart sound present PERIPHERAL PULSES: Peripheral pulses 2+ throughout GI: COMMON NORMALS: Normal to inspection, nondistended, normoactive bowel sounds present, Soft to palpation, non-tender and no masses PALPATION: Yes Soft to palpation : COMMON NORMALS: Yes no CVA tenderness BLADDER/KIDNEY EXAM: Yes no CVA tenderness Back/Pelvis: COMMON NORMALS: no CVA tenderness Extremity: COMMON NORMALS: normal to inspection Neuro: COMMON NORMALS: patient oriented x3 and moves all extremities SENSORIUM/ORIENTATION: Yes alert Skin: GENERAL SKIN EXAM: dry skin Course Vital Signs: Vital signs: Vital Signs Temperature 98.6 F 11/21/21 03:35 Pulse Rate 79 11/21/21 03:35 Respiratory Rate 20 H 11/21/21 03:35 Blood Pressure 105/61 11/21/21 03:35 Pulse Oximetry 98 11/21/21 03:35 [facility] - General Adult Medical Decision Making Patient is a 71-year-old male comes to the ED with fever and cough. Symptoms started approximately 2 days ago. Patient says he went up to his girlfriend's house to help her move out. He was moving stuff in and out of a trailer that was very gust[place] and dirty and he says he was breathing that in and that is when his cough and nasal congestion and drainage started. His girlfriend had same symptoms and she did a home COVID test and it was negative. Denies any chest pain or shortness of breath. Patient has a temp of 100.5 the rest of vitals are stable. He has active dry cough upon exam but lungs are clear to auscultation bilaterally. COVID pending, strep negative and influenza negative. Chest x-ray showed no infiltrates. Patient was given a dose of Solu-Medrol and azithromycin here in the ED. He was diagnosed with bronchitis and discharged home with a prescription for azithromycin, prednisone and albuterol inhaler to use as needed for any shortness of breath or wheezing. Follow-up with PCP in the next week for reevaluation. Return to ED precautions given. Patient understood and agreed with plan. Lab Data I reviewed the patient's lab results. Radiology Impressions Chest X-Ray 11/21/21 00:59 IMPRESSION: No confluent infiltrates in the lungs. Laboratory Results Influenza Type A Ag Negative (Negative) 11/21/21 01:34 Influenza Type B Ag Negative (Negative) 11/21/21 01:34 Group A Strep Rapid Negative (Negative) 11/21/21 01:34 Discharge Plan Discharge Patient Disposition: Home Clinical Impression: Bronchitis, Encounter for laboratory testing for COVID-19 virus Condition: Stable Prescriptions: New azithromycin 250 mg tablet 250 mg PO DAILY 4 Days Qty: 4 0RF Rx Instructions: start on day 2 of therapy prednisone 20 mg tablet 20 mg PO BID 5 Days Qty: 10 0RF albuterol sulfate 90 mcg/actuation HFA aerosol inhaler 2 inh inhalation Q6H PRN (Reason: shortness of breath or wheezing) Qty: 8.5 0RF No Action doxycycline hyclate 100 mg capsule 100 mg PO BID 7 Days Qty: 14 0RF ciprofloxacin HCl [Cipro] 250 mg tablet 250 mg PO BID 5 Days Qty: 10 0RF clotrimazole [Antifungal (clotrimazole)] 1 % cream 1 applic topical BID 10 Days Qty: 90 0RF montelukast [Singulair] 10 mg tablet 10 mg PO DAILY 0RF pantoprazole [Protonix] 20 mg tablet,delayed release (DR/EC) 20 mg PO DAILY 0RF tamsulosin [Flomax] 0.4 mg capsule 0.4 mg PO BID 0RF alprazolam [Xanax] 0.5 mg tablet 0.5 mg PO TID 0RF atorvastatin 40 mg tablet 40 mg PO DAILY 0RF sertraline 25 mg tablet 25 mg PO DAILY 0RF Plavix 75 mg tablet 75 mg PO DAILY 0RF Discharge Orders: Discharge ED (Routine); Ordered 11/21/21 Ordered By: Sheldon Johnson Discharge Diet: Regular Discharge Activity: Increase activity as tolerated Patient Instructions: Bronchitis (Acute) - Adult Activity Restrictions/Additional Instructions: Follow-up with medical provider as directed in the next 5 to 7 days for reevaluation. COVID test is pending and results will be back later tonight. [facility] positive, but I recommend calling [employer] [facility] tomorrow morning to find out COVID-19 results. Take medications as prescribed. Return to the ER or your medical provider if condition worsens. Please read and understand discharge instructions. [facility] Please realize this is an emergency room and that we are providing you with a medical screening exam and this may not be complete and all inclusive of all the testing and or work up that you may need to determine your ailment or severity of your illness. It is very important that you follow up as instructed or that you return to the Emergency Department should you have concerns or if your condition changes or worsens in any way. 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
[2021-11-21 01:38] VITALS: BP 120/61; PULSE 77; RESP 18; TEMP 37.2; O2SAT 97
[2021-11-21] MEDS: acetaminophen 500 mg Tablet 1000 MG PO (01:39)
[2021-11-21 01:53] LABS: Rapid Strep A Test Negative (Negative)
[2021-11-21 02:01] LABS: Influenza A by IFA Negative (Negative); Influenza B by IFA Negative (Negative)
[2021-11-21 03:35] VITALS: BP 105/61; PULSE 79; RESP 20; TEMP 37; O2SAT 98
[2021-11-21] MEDS: azithromycin 250 mg Tablet 500 MG PO (03:36)
[2021-11-24 11:26] LABS: Quest SARS-CoV-2 RNA DETECTED
--- NOTE | 2021-11-24 16:26 | PC.NURSE ---
pt notified of postive covid result
== END 2021-11-21 03:45 | disposition home or self-care (01) ==
PROVIDERS: Emergency Provider Physician Assistant
DX: J40 Bronchitis, not specified as acute or chronic (principal); Z20.822 Contact with and (suspected) exposure to COVID-19; Z79.02 Long term (current) use of antithrombotics/antiplatelets; E78.5 Hyperlipidemia, unspecified; I10 Essential (primary) hypertension; I25.2 Old myocardial infarction; F17.220 Nicotine dependence, chewing tobacco, uncomplicated
CPT/HCPCS: 71045; 87081; 87635; 87804; 87880; 96372; 99284; J2930; Q0144

== ENCOUNTER → 2022-11-01 08:52 | Outpatient (BNVA) | payer MEDICARE, MEDICAID, SELFPAY | PROVIDERS: Visit Provider Internal Medicine Cardiovascular Disease | DX: R00.1 Bradycardia, unspecified (principal) | CPT/HCPCS: 93225 ==

== ENCOUNTER 2023-11-12 13:30 | Emergency (ER) | payer MEDICARE, MEDICAID, SELFPAY ==
[2023-11-12 14:11] VITALS: BP 149/69; PULSE 68; RESP 16; TEMP 36.5; O2SAT 98
--- NOTE | 2023-11-12 14:36 | W.ED.SKABFB ---
HPI - Skin/Abscess/Foreign Bdy General: Chief complaint: Skin/Abscess/Foreign Body Stated complaint: rash on chest and legs/back Time Seen by Provider: 11/12/23 14:21 Source: patient Mode of arrival: ambulatory Limitations: no limitations History of Present Illness: 73-year-old male states he had a rash to his trunk for the last week. He states he been out cutting trees and he believes is poison jitendra states very pruritic in nature denies any worsening improving factors. Denies any pain or fever Associated symptoms: Deny chills, fever(s), nausea or vomiting Review of Systems Const: Denies: fever(s), chills, body aches or change in appetite ENMT: Denies: throat pain or dental pain Card: Denies: chest pain Resp: Denies: dyspnea GI: Denies: abdominal pain, nausea, vomiting or diarrhea Musc: Denies: neck pain or back pain Skin/Breast: Reports: rash Neuro: Denies: headache(s) PFSH ED PFSH: Medical History ASHD (arteriosclerotic heart disease) Myocardial infarction HTN (hypertension) GERD (gastroesophageal reflux disease) Carotid stenosis, bilateral Dyslipidemia Surgical History S/P PTCA (percutaneous transluminal coronary angioplasty) S/P sinus surgery S/P cataract extraction Social History Smoking and tobacco/nicotine status: current every day tobacco/nicotine user (chew) smokeless tobacco Alcohol intake: never Substance/Drug Use: never Physical Exam Const: COMMON NORMALS: no acute distress, patient oriented x3 and healthy appearing HENMT: COMMON NORMALS: normocephalic and atraumatic HEAD & SCALP: normocephalic and atraumatic Neck/C-Spine: COMMON NORMALS: full ROM and supple Resp: COMMON NORMALS: normal respiratory effort Cardio: COMMON NORMALS: regular rate, regular rhythm and No murmurs present (Cardio) RATE: regular rate RHYTHM: regular rhythm Extremity: COMMON NORMALS: normal to inspection and full ROM Neuro: COMMON NORMALS: patient oriented x3, moves all extremities and no focal motor deficits Psych: COMMON NORMALS: mental status grossly normal, Normal thought process present and cooperative THOUGHT PROCESS: Normal thought process present Skin: COMMON NORMALS: no wounds NARRATIVE SKIN EXAM: Rash noted to chest consistent with poison jitendra Course Vital Signs: Vital signs: Vital Signs Temperature 97.7 F 11/12/23 14:11 Pulse Rate 68 11/12/23 14:11 Respiratory Rate 16 11/12/23 14:11 Blood Pressure 149/69 11/12/23 14:11 Pulse Oximetry 98 11/12/23 14:11 MDM - Skin/Abscess/Foreign Bdy Medicial Decision Making Patient presents with a contact dermatitis likely poison jitendra did give him Kenalog and Decadron patient is stable for discharge follow-up PCP return if worsening. Medical Records I reviewed the patient's medical records. No radiology studies performed this visit Discharge Plan Discharge Patient Disposition: Home Clinical Impression: Contact dermatitis Condition: Stable Prescriptions: No Action doxycycline hyclate 100 mg capsule 100 mg PO BID 7 Days Qty: 14 0RF ciprofloxacin HCl [Cipro] 250 mg tablet 250 mg PO BID 5 Days Qty: 10 0RF clotrimazole [Antifungal (clotrimazole)] 1 % cream 1 applic topical BID 10 Days Qty: 90 0RF montelukast [Singulair] 10 mg tablet 10 mg PO DAILY pantoprazole [Protonix] 20 mg tablet,delayed release (DR/EC) 20 mg PO DAILY tamsulosin [Flomax] 0.4 mg capsule 0.4 mg PO BID alprazolam [Xanax] 0.5 mg tablet 0.5 mg PO TID atorvastatin 40 mg tablet 40 mg PO DAILY sertraline 25 mg tablet 25 mg PO DAILY Plavix 75 mg tablet 75 mg PO DAILY albuterol sulfate 90 mcg/actuation HFA aerosol inhaler 2 inh inhalation Q6H PRN (Reason: shortness of breath or wheezing) Qty: 8.5 0RF Discharge Orders: Discharge ED (Routine); Ordered 11/12/23 Ordered By: Vickey Rossi Discharge Diet: Advance as tolerated Discharge Activity: Resume usual activity Patient Instructions: Contact Dermatitis (ED) Coding Level of Care Code ED Upset 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
[2023-11-12] MEDS: triamcinolone 40 mg/mL SDV 80 MG IM (14:56)
[2023-11-12] MEDS: dexamethasone 10 mg/mL INJ IM (14:56)
[2023-11-12 15:40] VITALS: BP 128/71; PULSE 58; RESP 16; O2SAT 97
== END 2023-11-12 15:40 | disposition home or self-care (01) ==
PROVIDERS: Emergency Provider Emergency Medicine
DX: L25.9 Unspecified contact dermatitis, unspecified cause (principal); Z79.02 Long term (current) use of antithrombotics/antiplatelets; I25.2 Old myocardial infarction; I10 Essential (primary) hypertension; E78.5 Hyperlipidemia, unspecified; F17.220 Nicotine dependence, chewing tobacco, uncomplicated
CPT/HCPCS: 96372; 99284; J1100; J3301

== ENCOUNTER 2024-06-16 20:52 | Emergency (ER) | payer MEDICARE, MEDICAID, SELFPAY ==
[2024-06-16 20:59] VITALS: BP 180/86; PULSE 64; RESP 17; TEMP 36.9; O2SAT 98; BMI 30.2
--- NOTE | 2024-06-16 22:06 | XRR_ITS ---
PROCEDURE INFORMATION: Exam: XR Left Hip Exam date and time: 06/16/2024 10:24 PM Age: 74 years old Clinical indication: C/O left hip pain. No injury. TECHNIQUE: Imaging protocol: Radiologic exam of the left hip. Views: 2 or 3 views hip with pelvis when performed. COMPARISON: CT abdomen pelvis wo con [id number] 05/09/2018 7:14 PM FINDINGS: Bones/joints: Unremarkable. No acute fracture. Soft tissues: Unremarkable. XR/XR hip LT 2-3V wo/w pel* [id number] IMPRESSION: No acute findings.
--- NOTE | 2024-06-17 00:39 | W.ED.EXTPRO ---
HPI - Extremity Problem General: Chief complaint: Extremity Problem,Nontraumatic Stated complaint: left hip pain Time Seen by Provider: 06/16/24 23:09 Source: patient Mode of arrival: ambulatory Limitations: no limitations History of Present Illness: Patient is a 74-year-old male that presents to the emergency department with worsening left hip pain. Patient denies any fall or traumatic injury. He states he has been working in his garage and laying down on the concrete floor which may have aggravated the pain. He states he had a similar condition several years ago. He denies any fever or chills. He denies any numbness or tingling. He presents to the emergency department for further evaluation and treatment. Associated symptoms: Deny chest pain, fever(s) or rash Related Data Home Medications ?Medication ?Instructions ?Recorded ?Confirmed alprazolam 0.5 mg tablet (Xanax) 0.5 mg PO TID 06/03/19 05/02/21 montelukast 10 mg tablet 10 mg PO DAILY 06/03/19 05/02/21 (Singulair) pantoprazole 20 mg tablet,delayed 20 mg PO DAILY 06/03/19 05/02/21 release (Protonix) tamsulosin 0.4 mg capsule (Flomax) 0.4 mg PO BID 06/03/19 05/02/21 atorvastatin 40 mg tablet 40 mg PO DAILY 04/27/21 05/02/21 clopidogrel 75 mg tablet (Plavix) 75 mg PO DAILY 04/27/21 05/02/21 sertraline 25 mg tablet 25 mg PO DAILY 04/27/21 05/02/21 Previous Rx's ?Medication ?Instructions ?Recorded ciprofloxacin HCl 250 mg tablet 250 mg PO BID 5 days #10 tabs 05/02/21 (Cipro) clotrimazole 1 % topical cream 1 applic topical BID 10 days #90 05/02/21 (Antifungal (clotrimazole)) grams doxycycline hyclate 100 mg capsule 100 mg PO BID 7 days #14 caps 05/02/21 albuterol sulfate 90 mcg/actuation 2 inh inhalation Q6H PRN shortness 11/21/21 aerosol inhaler of breath or wheezing #8.5 grams hydrocodone 5 mg-acetaminophen 325 1 tab PO Q4H PRN pain #10 tabs 06/17/25 mg tablet prednisone 20 mg tablet 40 mg (2 x 20 mg) PO DAILY 5 days 06/17/24 #20 tabs Allergies Allergy/AdvReac Type Severity Reaction Status Date / Time [facility] Allergy rash Verified 11/12/23 14:15 metoprolol Allergy slows heart Verified 11/12/23 14:15 Review of Systems Const: Denies: fever(s) or chills Eyes: Denies: eye discharge or eye redness ENMT: Denies: throat pain, swelling of lips/tongue or ear or mastoid pain Card: Denies: chest pain Resp: Denies: dyspnea, productive cough, non-productive cough or wheezing GI: Denies: abdominal pain, nausea or vomiting : Denies: difficulty urinating or dysuria Musc: Reports: joint pain Skin/Breast: Denies: rash or erythema Neuro: Reports: difficulty walking (Due to pain in the left hip); Denies: numbness in extremities or weakness in extremities Psych: Denies: anxiety or depression Endo: Denies: polyuria Saturnino/Lymph: Denies: petechiae All/Imm: Denies: urticaria, tongue swelling or facial swelling PFSH ED PFSH: Medical History ASHD (arteriosclerotic heart disease) Myocardial infarction HTN (hypertension) GERD (gastroesophageal reflux disease) Carotid stenosis, bilateral Dyslipidemia Surgical History S/P PTCA (percutaneous transluminal coronary angioplasty) S/P sinus surgery S/P cataract extraction Social History Smoking and tobacco/nicotine status: current every day tobacco/nicotine user (chew) smokeless tobacco Alcohol intake: never Substance/Drug Use: never Physical Exam Const: COMMON NORMALS: no acute distress, patient oriented x3 and alert EXAM LIMITATIONS: no altered mental status ORIENTATION/CONSCIOUSNESS: Yes oriented to person, Yes oriented to place and Yes oriented to time HENMT: COMMON NORMALS: EAC's normal and TM's normal bilaterally EXTERNAL AUDITORY CANAL: EAC's normal TYMPANIC MEMBRANE: TM's normal bilaterally MOUTH: Normal oral and palatal mucosa present Eye: COMMON NORMALS: conjunctivae normal CONJUNCTIVA: Yes conjunctivae normal Neck/C-Spine: COMMON NORMALS: full ROM, supple and no meningeal signs CERVICAL SPINE: Yes cervical ROM normal Lymph: LYMPHATIC: no lymphadenopathy noted Resp: COMMON NORMALS: normal respiratory effort and clear to auscultation bilaterally AUSCULTATION: clear to auscultation bilaterally, no crackles, no rales, no rhonchi and no wheezes Cardio: COMMON NORMALS: regular rate and regular rhythm RATE: regular rate RHYTHM: regular rhythm : COMMON NORMALS: Yes no CVA tenderness BLADDER/KIDNEY EXAM: Yes no CVA tenderness Back/Pelvis: COMMON NORMALS: no CVA tenderness LUMBAR SPINE/LOWER BACK: No lumbar spinal tenderness PELVIS: Yes sciatic notch tenderness on the left Extremity: COMMON NORMALS: negative for full ROM (Decreased range of motion left hip due to pain) LEFT LOWER EXTREMITY: Yes knee joint Left knee: Yes ROM, Yes lower leg Left lower leg: Yes palpation and Yes neurovascular exam and Yes ankle joint Left ankle: Yes palpation and Yes ROM Neuro: COMMON NORMALS: patient oriented x3 SENSORIUM/ORIENTATION: Yes alert, Yes oriented to person, Yes oriented to place and Yes oriented to time MENINGEAL SIGNS: Yes no meningeal signs SENSORY EXAM: Yes extremities (No reported numbness or tingling of the extremities) Psych: COMMON NORMALS: mental status grossly normal ATTITUDE: Yes calm Skin: COMMON NORMALS: no rashes or lesions noted GENERAL SKIN EXAM: no rashes or lesions noted Course Vital Signs: Vital signs: Vital Signs Temperature 98.5 F 06/16/24 20:59 Pulse Rate 64 06/16/24 20:59 Respiratory Rate 17 06/16/24 20:59 Blood Pressure 180/86 06/16/24 20:59 Pulse Oximetry 98 06/16/24 20:59 Oxygen Delivery Me thod Room Air 06/16/24 20:59 MDM - Extremity (Nontraumatic) Medical Decision Making Patient was advised of the exam and imaging findings. Thankfully, there was no fracture noted on the x-ray. The patient is on Plavix and I do not feel that any anti-inflammatory medication will be good with this medicine. We will place the patient on a short course of prednisone to use as directed as well as some hydrocodone to help with the pain. His prescriptions were sent electronically to his preferred pharmacy. I recommended that he alternate ice and heat and follow-up with his primary care provider for further evaluation and treatment. I also recommended that he return to the emergency department with a worsening symptoms such as numbness, tingling, fever, chills, redness. The patient expressed understanding. Lab Data Radiology Impressions Hip/Pelvis X-Ray 06/16/24 22:06 IMPRESSION: No acute findings. All radiology interpretation(s) finalized by discharge Critical Care Time Critical Care Time: Critical Care Time: No Discharge Plan Discharge Patient Disposition: Home Clinical Impression: Acute pain of left hip Condition: Stable Prescriptions: New prednisone 20 mg tablet 40 mg PO DAILY 5 Days Qty: 20 0RF hydrocodone-acetaminophen 5-325 mg tablet 1 tab PO Q4H PRN (Reason: pain) Qty: 10 0RF No Action doxycycline hyclate 100 mg capsule 100 mg PO BID 7 Days Qty: 14 0RF ciprofloxacin HCl [Cipro] 250 mg tablet 250 mg PO BID 5 Days Qty: 10 0RF clotrimazole [Antifungal (clotrimazole)] 1 % cream 1 applic topical BID 10 Days Qty: 90 0RF montelukast [Singulair] 10 mg tablet 10 mg PO DAILY pantoprazole [Protonix] 20 mg tablet,delayed release (DR/EC) 20 mg PO DAILY tamsulosin [Flomax] 0.4 mg capsule 0.4 mg PO BID alprazolam [Xanax] 0.5 mg tablet 0.5 mg PO TID atorvastatin 40 mg tablet 40 mg PO DAILY sertraline 25 mg tablet 25 mg PO DAILY Plavix 75 mg tablet 75 mg PO DAILY albuterol sulfate 90 mcg/actuation HFA aerosol inhaler 2 inh inhalation Q6H PRN (Reason: shortness of breath or wheezing) Qty: 8.5 0RF Discharge Orders: Discharge ED (Routine); Ordered 06/17/24 Ordered By: Mike Thomas Referrals: Chano Mcpherson MD [Physician] - Discharge Diet: Usual diet Discharge Activity: Limit activity as instructed Patient Instructions: Hip Pain (ED), Opioid Safety, Pain Management Activity Restrictions/Additional Instructions: Take the medications as directed. Follow-up with orthopedics for further evaluation and treatment. Call for an appointment. Avoid activities make the pain worse. Ice 20 minutes at a time, 5 times throughout the day as needed for pain. Return to the emergency department with any worsening symptoms such as increased pain, fever, vomiting or any other worsening symptoms. Print Language: Greek Coding Level of Care Code ED Service Station [employer] for [employer]
[2024-06-17] MEDS: HYDROcodone-acetaminophen 5-325 mg Tablet 1 TAB PO (00:59)
== END 2024-06-17 01:21 | disposition home or self-care (01) ==
PROVIDERS: Emergency Provider Physician Assistant
DX: M25.552 Pain in left hip (principal); F17.220 Nicotine dependence, chewing tobacco, uncomplicated; I10 Essential (primary) hypertension; E78.5 Hyperlipidemia, unspecified
CPT/HCPCS: 12345; 73502; 99283